=== PATIENT | male | born 1960 | race Caucasian/White ===

== ENCOUNTER → 2020-11-23 07:52 | Outpatient (CLI) | payer BC ==
[~2020-11-23 07:52] MED LIST: ASA81 MG; CLONAZEPAM0.5 MG; HYZAAR 50/12.51 TAB; MIRTAZAPINE7.5 MG; NALTREXONE HCL50 MG
== END | disposition home or self-care (01) ==
LOC: LAB 07:52
PROVIDERS: ATTEND Internal Medicine Geriatric Medicine
DX: D50.8 Other iron deficiency anemias (principal); E03.8 Other specified hypothyroidism; E78.2 Mixed hyperlipidemia; I11.9 Hypertensive heart disease without heart failure; E56.8 Deficiency of other vitamins; N39.0 Urinary tract infection, site not specified; Z12.11 Encounter for screening for malignant neoplasm of colon; R19.5 Other fecal abnormalities; E55.9 Vitamin D deficiency, unspecified; N19 Unspecified kidney failure; E11.9 Type 2 diabetes mellitus without complications; R80.8 Other proteinuria; C18.8 Malignant neoplasm of overlapping sites of colon; K92.1 Melena; Z12.5 Encounter for screening for malignant neoplasm of prostate; R06.02 Shortness of breath

== ENCOUNTER 2021-01-24 13:30 | Outpatient (CLI) | payer BC | END 2021-01-24 15:25 | disposition home or self-care (01) | LOC: OFIC 805 13:30 | PROVIDERS: ATTEND Otolaryngology Otology & Neurotology | DX: H69.81 Other specified disorders of Eustachian tube, right ear (principal); H73.811 Atrophic flaccid tympanic membrane, right ear; H90.11 Conductive hearing loss, unilateral, right ear, with unrestricted hearing on the contralateral side; H61.21 Impacted cerumen, right ear; H60.391 Other infective otitis externa, right ear ==

== ENCOUNTER → 2022-04-24 | Outpatient (CLI) | payer BC | END | disposition home or self-care (01) | LOC: TOM 08:17 | PROVIDERS: ATTEND Internal Medicine Gastroenterology | DX: K76.0 Fatty (change of) liver, not elsewhere classified (principal); R10.13 Epigastric pain; H73.811 Atrophic flaccid tympanic membrane, right ear; H69.81 Other specified disorders of Eustachian tube, right ear ==

== ENCOUNTER 2022-06-28 16:24 | Outpatient (CLI) | payer BC | END 2022-06-28 16:29 | disposition home or self-care (01) | LOC: LAB 16:24 | PROVIDERS: ATTEND Radiology Diagnostic Radiology | DX: D13.4 Benign neoplasm of liver (principal) ==

== ENCOUNTER 2022-07-05 08:24 | Outpatient (CLI) | payer BC | END 2022-07-05 08:34 | disposition home or self-care (01) | LOC: MRI 08:24 | PROVIDERS: ATTEND Internal Medicine Gastroenterology | DX: D13.4 Benign neoplasm of liver (principal) | CPT/HCPCS: 74183 ==

== ENCOUNTER 2023-04-24 07:42 | Outpatient (CLI) | payer BC | END 2023-04-24 07:43 | disposition home or self-care (01) | LOC: LAB 07:42 | PROVIDERS: ATTEND Internal Medicine Geriatric Medicine | DX: D50.9 Iron deficiency anemia, unspecified (principal); E03.9 Hypothyroidism, unspecified; E78.2 Mixed hyperlipidemia; I11.9 Hypertensive heart disease without heart failure; E56.8 Deficiency of other vitamins; N39.0 Urinary tract infection, site not specified; Z12.11 Encounter for screening for malignant neoplasm of colon; E55.9 Vitamin D deficiency, unspecified; N19 Unspecified kidney failure; K92.1 Melena; E11.9 Type 2 diabetes mellitus without complications; R80.9 Proteinuria, unspecified; Z12.5 Encounter for screening for malignant neoplasm of prostate ==

== ENCOUNTER 2025-05-24 07:53 | Outpatient (CLI) | payer OTHER | END 2025-05-24 07:54 | disposition home or self-care (01) | LOC: NUCLEAR 07:53 | PROVIDERS: ATTEND Internal Medicine Cardiovascular Disease | DX: I11.9 Hypertensive heart disease without heart failure (principal) ==